=== PATIENT | female | born 1980 | race Caucasian/White ===

== ENCOUNTER 2017-10-15 15:59 | Emergency (ER) | payer BC ==
[2017-10-15 16:46] VITALS: BP 113/74
--- NOTE | 2017-10-15 17:03 | UC ---
Skin Complaint HPI - HPI Summary HPI Summary: Pt c/o insect bite right upper arm. C/o of worsening redness and tenderness surrounding bite area. - History of Current Complaint Chief Complaint: UCSkin Time Seen by Provider: 10/15/17 16:51 Stated Complaint: SKIN COMPLAINT Hx Obtained From: Patient Hx Last Menstrual Period: ABLATION ?: No Onset/Duration: Gradual Onset, Lasting Hours, Worse Since - onset Skin Exposure Onset/Duration: Hours Ago Timing: Constant Onset Severity: Mild Current Severity: Moderate Pain Intensity: 7 Location: Discrete - right upper arm Character: Swelling, Redness, Raised, Painful Aggravating Factor(s): Touch Alleviating Factor(s): Nothing Associated Signs & Symptoms: Positive: Tenderness Related History: Insect Bite/Sting - Allergy/Home Medications Allergies/Adverse Reactions: Allergies Allergy/AdvReac Type Severity Reaction Status Date / Time No Known Allergies Allergy Verified 02/13/16 19:06 Home Medications: Home Medications Furosemide [Lasix] 40 mg PO DAILY 10/15/17 [History Confirmed 10/15/17] Potassium Chloride 20 meq PO DAILY 10/15/17 [History Confirmed 10/15/17] diphenhydrAMINE HCl [Benadryl Allergy] 25 mg PO Q12H 10/15/17 [History Confirmed 10/15/17] Review of Systems Constitutional: Chills Skin: Other - erythema Eyes: Negative ENT: Negative Respiratory: Negative Cardiovascular: Negative Gastrointestinal: Negative Genitourinary: Negative Motor: Negative Neurovascular: Negative Musculoskeletal: Negative Neurological: Negative Psychological: Negative Is Patient Immunocompromised?: No All Other Systems Reviewed And Are Negative: Yes PMH/Surg Hx/FS Hx/Imm Hx Previously Healthy: Yes - Surgical History Surgical History: Yes Surgery Procedure, Year, and Place: tonsilectomy. hernia. myron. ablation. bunionectomy left foot - Family History Known Family History: Positive: Hypertension - Social History Occupation: Employed Full-time Lives: With Family Alcohol Use: Weekly Substance Use Type: None Smoking Status (MU): Never Smoked Tobacco Have You Smoked in the Last Year: No Physical Exam Triage Information Reviewed: Yes Appearance: Well-Appearing Vital Signs: Initial Vital Signs Temp 97.9 F 10/15/17 16:42 Pulse 71 10/15/17 16:42 Resp 17 10/15/17 16:42 BP 113/74 10/15/17 16:42 Pulse Ox 100 10/15/17 16:42 Vital Signs Reviewed: Yes Eye Exam: Normal ENT: Positive: Hearing grossly normal Dental Exam: Normal Neck exam: Normal Respiratory: Positive: No respiratory distress Musculoskeletal Exam: Normal Neurological Exam: Normal Psychological Exam: Normal Skin Exam: Other - large erythematous circular area on right upper posterior arm. ~ 17cm X 13 cm area was marked with surgical marker. Course/Dx - Differential Diagnoses - Skin Complaint Differential Diagnoses: Allergic Reaction, Cellulitis - Diagnoses Provider Diagnoses: cellulitis. localized allergic reaction Discharge - Sign-Out/Discharge Documenting (check all that apply): Discharge/Admit/Transfer - Discharge Plan Condition: Stable Disposition: HOME Prescriptions: Cephalexin CAP* [Keflex 500 CAP*] 500 mg PO Q8H #30 cap Patient Education Materials: Cellulitis (ED), Insect Bite or Sting (ED) Referrals: Naida Dhaliwal MD [Primary Care Provider] - If Needed - Billing Disposition and Condition Condition: STABLE Disposition: HOME
== END 2017-10-15 17:08 | disposition home or self-care (01) ==
LOC: UCCORT 15:59
DX: T78.40XA Allergy, unspecified, initial encounter (principal); X58.XXXA Exposure to other specified factors, initial encounter; L03.113 Cellulitis of right upper limb
CPT/HCPCS: 99212; G0463

== ENCOUNTER 2017-12-08 17:16 | Emergency (ER) | payer BC ==
[2017-12-08 17:50] VITALS: BP 116/62
--- NOTE | 2017-12-08 17:54 | UC ---
Ear Complaint HPI - HPI Summary HPI Summary: His like she's gotten a bug in her ear about 10:30 this morning. She has flushed her ear did not see anything come out she still feels like her hearing is muffled in her right ear. - History of Current Complaint Chief Complaint: UCEar Stated Complaint: PAIN RIGHT EAR/BUG FLEW IN EAR Time Seen by Provider: 12/08/17 17:43 Hx Obtained From: Patient Hx Last Menstrual Period: ABLATION ?: No Onset/Duration: Sudden Onset Severity Currently: Mild Aggravating Factors: FB Associated Signs/Symptoms: Positive: Foreign Body Sensation - Allergies/Home Medications Allergies/Adverse Reactions: Allergies Allergy/AdvReac Type Severity Reaction Status Date / Time latex Allergy Rash Verified 12/08/17 17:44 Home Medications: Home Medications Sennosides [Vegetable Laxative] 4 tab PO DAILY 12/08/17 [History Confirmed 12/08] PMH/Surg Hx/FS Hx/Imm Hx Previously Healthy: Yes - Surgical History Surgical History: Yes Surgery Procedure, Year, and Place: tonsilectomy. hernia. myron. ablation. bunionectomy left foot - Family History Known Family History: Positive: Hypertension - Social History Occupation: Employed Full-time Lives: With Family Alcohol Use: Weekly Substance Use Type: None Smoking Status (MU): Never Smoked Tobacco Have You Smoked in the Last Year: No Review of Systems Constitutional: Negative Skin: Negative Eyes: Negative ENT: Ear Ache - concerned she may have a bug in here right ear Respiratory: Negative Cardiovascular: Negative Gastrointestinal: Negative Genitourinary: Negative Motor: Negative Neurovascular: Negative Musculoskeletal: Negative Neurological: Negative Psychological: Negative Is Patient Immunocompromised?: No All Other Systems Reviewed And Are Negative: Yes Physical Exam Triage Information Reviewed: Yes Appearance: Well-Appearing, No Pain Distress, Well-Nourished Vital Signs Reviewed: Yes Eye Exam: Normal Eyes: Positive: Conjunctiva Clear ENT Exam: Normal ENT: Positive: Normal ENT inspection, Hearing grossly normal, Pharynx normal, Nasal congestion, TMs normal, Uvula midline. Negative: Tonsillar swelling, Tonsillar exudate, Trismus, Muffled voice, Hoarse voice, Sinus tenderness Dental Exam: Normal Neck exam: Normal Neck: Positive: Supple, Nontender Respiratory Exam: Normal Respiratory: Positive: Chest non-tender, No respiratory distress, No accessory muscle use Cardiovascular Exam: Normal Cardiovascular: Positive: RRR, Pulses Normal, Brisk Capillary Refill Musculoskeletal Exam: Normal Musculoskeletal: Positive: Strength Intact, ROM Intact, No Edema Neurological Exam: Normal Neurological: Positive: Alert, Muscle Tone Normal Psychological Exam: Normal Skin Exam: Normal Ear Complaint Course/Dx - Course Course Of Treatment: no evidence of fb in canal---warm compress tylenol, ibuprofen follow with pcp prn - Differential Dx/Diagnosis Provider Diagnoses: right ear pain, FB Resolved FLY WINDER Discharge - Sign-Out/Discharge Documenting (check all that apply): Discharge/Admit/Transfer - Discharge Plan Condition: Stable Disposition: HOME Patient Education Materials: Acetaminophen (By mouth), Ibuprofen (By mouth), Ear Foreign Body (ED), Warm Compress or Soak (ED) Referrals: Naida Dhaliwal MD [Primary Care Provider] - If Needed - Billing Disposition and Condition Condition: STABLE Disposition: Home
== END 2017-12-08 18:15 | disposition home or self-care (01) ==
LOC: UCCORT 17:16
DX: H92.01 Otalgia, right ear (principal)
CPT/HCPCS: 99211; G0463

== ENCOUNTER 2019-07-30 12:43 | Emergency (ER) | payer BC, OTHER ==
--- OUTSIDE RECORDS SUMMARY | 2019-07-30 13:12 | XMS REPORT | Continuity of Care Document ---
:1980 External Reference #:[id number] Author Name Vicente Mathew M.D. (transmitted by agent of provider Domonique Horton) Address [address] [place] [address] Care Team Providers Name Role Phone Naida Dhaliwal MD - Family Medicine Care Team Information Utilities Equipment Repairer [phone] Problems Active Problems Provider Date Dysphagia Purvi Sheehan NP Onset: 04/28/2019 Social History Type Date Description Comments Sex Unknown Tobacco Use Start: Unknown Never Smoked Cigarettes ETOH Use Current Alcohol Use - 1-3 Days A Week. Recreational Drug Use Has Used In Past Allergies, Adverse Reactions, Alerts Active Allergies Reaction Severity Comments Date Latex 10/28/2018 Medications Active Medications SIG Qnty Indications Ordering Provider Date Spironolactone 1 by mouth Unknown 50mg Tablets every day Rifampin Unknown 300mg Capsules Buspirone HCL Unknown 30mg Tablets Phentermine HCL 1 by mouth Unknown 37.5mg every day Capsules Omeprazole 1 by mouth Unknown 40mg Capsules DR every day Medications Administered in Office Medication SIG Qnty Indications Ordering Provider Date Dexamethasone Vicente Mathew M.D. 03/09/2019 Injection Dexamethasone Vicente Mathew M.D. 03/07/2019 Injection Dexamethasone Vicente Mathew M.D. 03/06/2019 Injection Dexamethasone Vicente Mathew M.D. 03/05/2019 Injection Immunizations Description No Information Available Vital Signs Date Vital Result Comment 07/29/2019 4:03pm Weight 176.00 lb Height 65 inches 5'5" BMI (Body Mass Index) 29.3 kg/m2 BP Systolic 124 mmHg BP Diastolic 80 mmHg Heart Rate 98 /min O2 % BldC Oximetry 100 % Body Temperature 97.4 F Pain Level 0 06/24/2019 2:14pm Weight 174.00 lb Height 65 inches 5'5" BMI (Body Mass Index) 29.0 kg/m2 BP Systolic 99 mmHg BP Diastolic 68 mmHg Heart Rate 75 /min O2 % BldC Oximetry 100 % Body Temperature 97.5 F Pain Level 0 Results Test Acquired Date Facility Test Result H/L Range Note Laboratory test 07/20/2019 [facility] Cytology SEE RESULT 1 , [address] Non-Chemical [place] [address] [phone] 1 [id number] 2 SEE RESULT BELOW Name: MARISOL CRUZ : [address]: Vicente Mathew MD Acct: [id number] Unit: [id number] AGE: 39 Location: [facility] Re07/20/19 SEX: F Status: REG REF SPEC: [id number] XOCHITL: 07/20/19-[address]: Vicente Mathew MD REQ: [id number] RECD: 07/20/19 STATUS: SOUT _ ORDERED: [facility] [[email or web address]] COMMENTS: [id number] FINAL DIAGNOSIS Thyroid, isthmus, fine needle aspiration: Benign thyroid nodule, chronic lymphocytic thyroiditis (Webster class II). SPECIMEN(S) RECEIVED THYROID ISTHMUS - ISTHMUS NODULE FINE NEEDLE ASPIRATION CLINICAL HISTORY Isthmus nodule. GROSS DESCRIPTION 1 Alcohol fixed slide(s) received from clinician, 5 Air dried slide(s) and 1 Needle rinse in CytoLyt solution for thin layer non-ship steward test.( clear) Signed by and Reported on: Jose Luis Armas MD [address] END OF REPORT DEPARTMENT OF PATHOLOGY, [address] [place] [address] Jose Luis Armas M.D. Director [facility] # [id number] Procedures Date Code Description Status 07/20/2019 12266 Fine Needle Aspiration Biopsy Inlcd Ultrasound Completed Guidance 06/24/2019 51190 Ultrasound Head/Neck Completed 04/07/2019 53578 Dil. Of Esoph. By Sound Or Bougie Completed 04/07/2019 42133 Esophagoscopy/Diagnostic Completed 04/07/2019 83958 Anesthesia, Chest Surgery Closed Completed 03/09/2019 69222 Therapeutic, Prophylactic Or Diagnostic Injection Completed Subq/Im 03/07/2019 58793 Therapeutic, Prophylactic Or Diagnostic Injection Completed Subq/Im 03/06/2019 86151 Therapeutic, Prophylactic Or Diagnostic Injection Completed Subq/Im 03/05/2019 99622 Therapeutic, Prophylactic Or Diagnostic Injection Completed Subq/Im 03/05/2019 40737 Ultrasound Head/Neck Completed 03/05/2019 09809 Fiberoptic Laryngoscopy,Diag. Completed 02/26/2019 [id number] Bone Mineral Density Test Completed 02/26/2019 [id number] Diabetic Retinal Eye Exam Completed 02/26/2019 [id number] Diabetic Foot Exam Completed Medical Devices Description No Information Available Encounters Type Date Location Provider Dx Diagnosis Office Visit 06/24/2019 Main Office Vicente Mathew M.D. E04.2 Nontoxic multinodular 3:45p goiter R13.10 Dysphagia, unspecified Office Visit 04/28/2019 4:15p Main Office Purvi Cuello R13.10 Dysphagia, Aguila, ARMANDO unspecified Office Visit 03/05/2019 10:15a Main Office Vicente Mathew R13.10 Dysphagia, M.DFederico unspecified K21.9 Gastro-esophageal reflux disease without esophagitis E04.2 Nontoxic multinodular goiter Assessments Date Code Description Provider 07/20/2019 E04.2 Nontoxic multinodular goiter Vicente Mathew M.D. 06/24/2019 E04.2 Nontoxic multinodular goiter Vicente Mathew M.D. 06/24/2019 R13.10 Dysphagia, unspecified Vicente Mathew M.D. 04/28/2019 R13.10 Dysphagia, unspecified Purvi Sheehan NP 04/07/2019 R13.10 Dysphagia, unspecified Alfonzo Allen MD 04/07/2019 R13.10 Dysphagia, unspecified Vicente Mathew M.D. 03/09/2019 R13.10 Dysphagia, unspecified Vicente Mathew M.D. 03/07/2019 R13.10 Dysphagia, unspecified Vicente Mathew M.D. 03/06/2019 R13.10 Dysphagia, unspecified Vicente Mathew M.D. 03/05/2019 R13.10 Dysphagia, unspecified Vicente Mathew M.D. 03/05/2019 K21.9 Gastro-esophageal reflux disease without Vicente Mathew M.D. esophagitis 03/05/2019 E04.2 Nontoxic multinodular goiter Vicente Mathew M.D. Plan of Treatment No Information Available Functional Status Description No Information Available Mental Status Description No Information Available Referrals Refer to Reason for Referral Status Appt Date Vicente Mathew M.D. NO AUTH REQ FOR SURGERY Created [address] [place] [id number] [phone]
--- OUTSIDE RECORDS SUMMARY | 2019-07-30 13:12 | XMS REPORT | Continuity of Care Document ---
:1980 External Reference #:[id number] Author Name Naida Dhaliwal MD Address [address] [place] [address] Care Team Providers Name Role Phone Purvi Webster MD - Neurology Care Team Information Research Attorney [phone] [facility] Care Team Information Research Attorney Walter Reina MD - Surgery Care Team Information Research Attorney You Guardado MD - Infectious Care Team Information Research Attorney Disease Yosef Hinkle M.D. Care Team Information Research Attorney [phone] Terry Flaherty DO Care Team Information Research Attorney [phone] Vicente Mathew MD - Otolaryngology Care Team Information Research Attorney Problems Active Problems Provider Date Benign intracranial hypertension Naida Dhaliwal MD Onset: 09/17/2013 Vitamin D deficiency Naida Dhaliwal MD Onset: 02/23/2013 Constipation Naida Dhaliwal MD Onset: 02/23/2013 Irritable bowel syndrome characterized by Naida Dhaliwal MD Onset: 2017 constipation Mild intermittent asthma Naida Dhaliwal MD Onset: 06/26/2017 Acne Naida Dhaliwal MD Onset: 12/30/2017 Moderate recurrent major depression Naida Dhaliwal MD Onset: 05/16/2018 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 You Guardado MD Onset: without active tuberculosis Palpitations Naida Dhaliwal MD Onset: 09/12/2018 Social History Type Date Description Comments Sex Unknown ETOH Use Denies alcohol use Tobacco Use Start: Unknown Patient has never smoked Smoking Status Reviewed: 05/28/19 Patient has never smoked Allergies, Adverse Reactions, Alerts Description No Known Drug Allergies Medications Active Medications SIG Qnty Indications Ordering Date Provider Bupropion HCL ER (XL) 1 by mouth every F33.1 Naida Dhaliwal, 07/28/2019 day MD 300mg Tablets ER 24HR Azelastine HCL (Nasal) 2 sprays each 30ml J01.00 Naida Dhaliwal, 2019 nostril twice a MD 0.15% Solution day as needed for nasal congestion or sinus headache Proair HFA 2 puffs every 4 8.500gm Naida Dhaliwal, 05/28/2018 108(90Base) hours as needed MD mcg/Act Aerosol Valacyclovir HCL take 2 tablets 30tabs Naida Dhaliwal, 08/28/2010 1gm every 12 hours MD Tablets for 2 doses if needed for cold sores Phentermine HCL 1 by mouth daily 30caps E66.9 Naida Dhaliwal, 37.5mg MD Capsules Spironolactone 2 tabs by mouth L70.9 Unknown 25mg once daily Tablets Senna Laxative qod as Needed Unknown 8.6mg Tablets History Medications Amoxicillin 1 po tid x 10 30caps J01.00 Naida Dhaliwal, 06/30/2019 - 500mg days MD 07/15/2019 Capsules Bupropion 1 by mouth 90tabs F33.1 Naida Dhaliwal, 05/28/2019 - Hydrochloride ER (XL) every day MD 07/28/2019 150mg Tablets ER 24HR Immunizations CPT Code Status Date Vaccine Lot # [id number] Given 03/20/2019 Influenza Virus Vaccine,Quadrivalent,Split,Preserv Free, 0.5mL,Im Q2039 Given 04/07/2018 Flu Vaccine NOS 58435 Given 04/03/2017 Afluria Or Fluvirin Flu Vac Intramuscular 59771 Given 03/05/2016 Influenza Virus Vaccine,Quadrivalent,Split,Preserv Free, 0.5mL,Im 7[address] Given 12/22/2013 MMR Virus Immunization 69411 Given 05/03/2012 Afluria Or Fluvirin Flu Vac Intramuscular 52051 Given 04/17/2012 Tdap (Adacel) Ages 7 And Above Only Vital Signs Date Vital Result Comment 07/28/2019 3:33pm Weight 174.12 lb Heart Rate 72 /min BP Systolic 110 mmHg BP Diastolic 72 mmHg Respiratory Rate 18 /min Height 64.5 inches 5'4.50" BMI (Body Mass Index) 29.4 kg/m2 06/30/2019 2:44pm Body Temperature 97.6 F Weight 174.00 lb Heart Rate 82 /min BP Systolic 120 mmHg BP Diastolic 72 mmHg Respiratory Rate 18 /min Height 64.5 inches 5'4.50" O2 % BldC Oximetry 98 % Ra BMI (Body Mass Index) 29.4 kg/m2 Results Test Acquired Date Facility Test Result H/L Range Note Hepatitis C 07/01/2019 [facility] HCV Index 0.01 s/c Antibody Hepatitis C Antibody Negative Negative HIV Combo By 06/30/2019 [facility] [employer] HIV NON REACTIVE Non Reactive [facility] Combo Laboratory test 06/30/2019 [facility] EQUIVOCAL Abnormal Non Reactive 1 finding Virus Antibody S/CORatio(Adolfo 1 CONFIRMED IN DUPLICATE Antibodies to HCV may or may not be present another speciment should be obtained for further testing S/CO Ratio >/=1.0 is REACTIVE. S/CO <5.0 is Low Reactive. S/CO >/= 5.0 is High Reactive. Effective Jan 25, 2017 all anti-HCV reactive samples are sent for quantitative PCR confirmation. Procedures Date Code Description Status 02/27/2017 [id number] Colonoscopy Completed Medical Devices Description No Information Available Encounters Type Date Location Provider Dx Diagnosis Office Visit 06/30/2019 2:45p [facility] Naida Dhaliwal MD E66.9 Obesity, unspecified E04.1 Nontoxic single thyroid nodule Z11.4 Encounter for screening for human immunodeficiency virus J01.00 Acute maxillary sinusitis, unspecified Z11.59 Encounter for screening for other viral diseases Z68.29 Body mass index (BMI) 29.0-29.9, adult Office Visit 05/28/2019 3:30p [facility] Naida Dhaliwal MD F33.1 Major depressive disorder, recurrent, moderate E66.9 Obesity, unspecified Z68.29 Body mass index (BMI) 29.0-29.9, adult Office Visit 04/16/2019 3:00p [facility] Naida Dhaliwal MD E66.9 Obesity, unspecified R22.1 Localized swelling, mass and lump, neck Office Visit 03/19/2019 3:00p [facility] Naida Dhaliwal MD R22.1 Localized swelling, mass and lump, neck E66.9 Obesity, unspecified F33.1 Major depressive disorder, recurrent, moderate Z68.29 Body mass index (BMI) 29.0-29.9, adult Office Visit 02/26/2019 3:15p [facility] Naida Dhaliwal MD R22.1 Localized swelling, mass and lump, neck Office Visit 02/10/2019 3:30p [facility] Keyona Tran NP E66.9 Obesity, unspecified Z68.29 Body mass index (BMI) 29.0-29.9, adult Assessments Date Code Description Provider 07/28/2019 E66.9 Obesity, unspecified Naida Dhaliwal MD 07/28/2019 F33.1 Major depressive disorder, recurrent, moderate Naida Dhaliwal MD 07/28/2019 Z68.29 Body mass index (BMI) 29.0-29.9, adult Naida Dhaliwal MD 06/30/2019 E66.9 Obesity, unspecified Naida Dhaliwal MD 06/30/2019 E66.9 Obesity, unspecified Naida Dhaliwal MD 06/30/2019 Z11.4 Encounter for screening for human Naida Dhaliwal MD immunodeficiency virus [HIV] 06/30/2019 E04.1 Nontoxic single thyroid nodule Naida Dhaliwal MD 06/30/2019 Z11.59 Encounter for screening for other viral Naida Dhaliwal MD diseases 06/30/2019 Z11.4 Encounter for screening for human Naida Dhaliwal MD immunodeficiency virus [HIV] 06/30/2019 J01.00 Acute maxillary sinusitis, unspecified Naida Dhaliwal MD 06/30/2019 Z11.59 Encounter for screening for other viral Naida Dhaliwal MD diseases 06/30/2019 Z68.29 Body mass index (BMI) 29.0-29.9, adult Naida Dhaliwal MD 06/30/2019 E66.9 Obesity, unspecified Schedule, Laboratory 06/30/2019 Z11.4 Encounter for screening for human Schedule, Laboratory immunodeficiency virus [HIV] 06/30/2019 Z11.59 Encounter for screening for other viral Schedule, Laboratory diseases 06/30/2019 E66.9 Obesity, unspecified [facility] 06/30/2019 Z11.4 Encounter for screening for human [facility] immunodeficiency virus 06/30/2019 Z11.59 Encounter for screening for other viral [facility] diseases 05/28/2019 F33.1 Major depressive disorder, recurrent, moderate Naida Dhaliwal MD 05/28/2019 E66.9 Obesity, unspecified Naida Dhaliwal MD 05/28/2019 Z68.29 Body mass index (BMI) 29.0-29.9, adult Naida Dhaliwal MD 04/16/2019 E66.9 Obesity, unspecified Naida Dhaliwal MD 04/16/2019 R22.1 Localized swelling, mass and lump, neck Naida Dhaliwal MD 03/19/2019 R22.1 Localized swelling, mass and lump, neck Naida Dhaliwal MD 03/19/2019 E66.9 Obesity, unspecified Naida Dhaliwal MD 03/19/2019 F33.1 Major depressive disorder, recurrent, moderate Naida Dhaliwal MD 03/19/2019 Z68.29 Body mass index (BMI) 29.0-29.9, adult Naida Dhaliwal MD 02/26/2019 R22.1 Localized swelling, mass and lump, neck Naida Dhaliwal MD 02/10/2019 E66.9 Obesity, unspecified Keyona Tran NP 02/10/2019 Z68.29 Body mass index (BMI) 29.0-29.9, adult Keyona Tran NP Plan of Treatment Future Appointment(s):10/27/2019 3:30 pm - Naida Dhaliwal MD at [facility]07/28/2019 - Naida Dhaliwal MDE66.9 Obesity, unspecifiedComments:She was provided with a refill on phentermine.Counseled about strategies for weight loss and the impact of weight on chronic medical problems. Work on healthy lifestyle, with regular exercise (20 min daily will help) and eat a healthy diet. Formal diet plans work best.Follow up:3-months follow up with fasting labs prior.F33.1 Major depressive disorder, recurrent, moderateNew Medication:Bupropion HCL ER ( XL) 300 mg - 1 by mouth every dayComments:We will resume back on increased dose of Wellbutrin as directed by physician. Continue with this.Z68.29 Body mass index (BMI) 29.0-29.9, adultComments:The BMI is the ratio between height and weight. Goal for a person under age 65 is between 18.5 and 25. You are overweight. Work on healthy lifestyle, with regular exercise (20 min daily will help) and eat a healthy diet. Formal diet plans work best. Functional Status Description No Information Available Mental Status Description No Information Available Referrals Refer to Dr Reason for Referral Status Appt Date Vicente Mathew MD PRIORITY REFERRAL!! evaluation and treatment Closed 2018 dysphagia and thyroid nodules called Dr. Mathew's office and spoke with Pattie. She would not schedule over the phone, she asked that I fax the referral and she would have the doctor review it today and get it scheduled. 03/05/[address] [place] [address] [phone]
--- OUTSIDE RECORDS SUMMARY | 2019-07-30 13:12 | XMS REPORT | Continuity of Care Document ---
:1980 External Reference #:[id number] Author Name Vicente Mathew M.D. (transmitted by agent of provider Domonique Horton) Address [address] [place] [address] Care Team Providers Name Role Phone Naida Dhaliwal MD - Family Medicine Care Team Information Sciences Dean [phone] Problems Active Problems Provider Date Dysphagia Purvi [...] Available Vital Signs Date Vital Result Comment 06/24/2019 2:14pm Weight 174.00 lb Height 65 inches 5'5" BMI (Body Mass Index) 29.0 kg/m2 BP Systolic 99 mmHg BP Diastolic 68 mmHg Heart Rate 75 /min O2 % BldC Oximetry 100 % Body Temperature 97.5 F Pain Level 0 04/28/2019 4:04pm Weight 174.00 lb Height 65 inches 5'5" BMI (Body Mass Index) 29.0 kg/m2 BP Systolic 118 mmHg BP Diastolic 78 mmHg Heart Rate 101 /min O2 % BldC Oximetry 100 % Body Temperature 98.4 F Pain Level 0 Results Description No Information Available Procedures Date Code Description Status 04/07/2019 32701 Dil. Of Esoph. By Sound Or Bougie Completed 04/07/2019 10184 Esophagoscopy/Diagnostic Completed 04/07/2019 12782 Anesthesia, Chest Surgery Closed Completed 03/09/2019 95458 Therapeutic, Prophylactic Or Diagnostic Injection Completed Subq/Im 03/07/2019 67894 Therapeutic, Prophylactic Or Diagnostic Injection Completed Subq/Im 03/06/2019 09514 Therapeutic, Prophylactic Or Diagnostic Injection Completed Subq/Im 03/05/2019 05605 Therapeutic, Prophylactic Or Diagnostic Injection Completed Subq/Im 03/05/2019 06727 Ultrasound Head/Neck Completed 03/05/2019 15798 Fiberoptic Laryngoscopy,Diag. 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 R13.10 Dysphagia, 10:15a unspecified K21.9 Gastro-esophageal reflux disease without esophagitis E04.2 Nontoxic multinodular goiter Assessments Date Code Description Provider 04/28/2019 R13.10 Dysphagia, unspecified Purvi Sheehan NP [...] M.D. NO AUTH REQ FOR SURGERY Created [address] [place] [address] [phone]
--- OUTSIDE RECORDS SUMMARY | 2019-07-30 13:12 | XMS REPORT | Continuity of Care Document ---
:1980 External Reference #:[id number] Author Name Naida Dhaliwal MD Address [address] [place] [address] Care Team Providers Name Role Phone Purvi Webster MD - Neurology Care Team Information Freelance Makeup Artist [phone] [facility] Care Team Information Freelance Makeup Artist Walter Reina MD - Surgery Care Team Information Freelance Makeup Artist You Guardado MD - Infectious Care Team Information Freelance Makeup Artist Disease Yosef Hinkle M.D. Care Team Information Freelance Makeup Artist [phone] Terry Flaherty DO Care Team Information Freelance Makeup Artist [phone] Vicente Mathew MD - Otolaryngology Care Team Information Freelance Makeup Artist [phone] Problems Active Problems Provider Date Benign intracranial [...] Medications SIG Qnty Indications Ordering Date Provider Amoxicillin 1 po tid x 10 30caps J01.00 Naida Dhaliwal, 06/30/2019 500mg days MD Capsules Azelastine HCL (Nasal) 2 sprays each 30ml J01.00 Naida Dhaliwal, 2019 nostril twice a MD 0.15% Solution day as needed for nasal congestion or sinus headache Bupropion 1 by mouth every 90tabs F33.1 Naida Dhaliwal, 05/28/2019 Hydrochloride ER (XL) day MD 150mg Tablets ER 24HR Proair HFA 2 puffs every 4 8.500gm [...] Laxative qod as Needed Unknown 8.6mg Tablets Immunizations CPT Code Status Date Vaccine Lot # [id number] Given 03/20/2019 Influenza Virus Vaccine,Quadrivalent,Split,Preserv Free, 0.5mL,Im Q2039 Given 04/07/2018 Flu Vaccine NOS 86146 Given 04/03/2017 Afluria Or Fluvirin Flu Vac Intramuscular 61263 Given 03/05/2016 Influenza Virus Vaccine,Quadrivalent,Split,Preserv Free, 0.5mL,Im 70701 Given 12/22/2013 MMR Virus Immunization 66600 Given 05/03/2012 Afluria Or Fluvirin Flu Vac Intramuscular 73014 Given 04/17/2012 Tdap (Adacel) Ages 7 And Above Only Vital Signs Date Vital Result Comment 06/30/2019 2:44pm Body Temperature 97.6 F Weight 174.00 lb Heart Rate 82 /min BP Systolic 120 mmHg BP Diastolic 72 mmHg Respiratory Rate 18 /min Height 64.5 inches 5'4.50" O2 % BldC Oximetry 98 % Ra BMI (Body Mass Index) 29.4 kg/m2 05/28/2019 3:13pm Weight 174.00 lb Heart Rate 73 /min BP Systolic 122 mmHg BP Diastolic 64 mmHg Respiratory Rate 18 /min Height 64.5 inches 5'4.50" O2 % BldC Oximetry 100 % BMI (Body Mass Index) 29.4 kg/m2 Results Test Acquired Date Facility Test Result H/L Range Note Laboratory test 06/30/2019 [facility] Hepatitis C Virus <pending> finding Antibody Procedures Date Code Description Status 02/27/2017 41485580 Colonoscopy Completed Medical Devices Description No Information Available Encounters Type Date Location Provider Dx Diagnosis Office Visit 05/28/2019 [facility] Naida Dhaliwal MD F33.1 Major depressive 3:30p disorder, recurrent, moderate E66.9 Obesity, unspecified Z68.29 Body mass index (BMI) 29.0-29.9, adult Office Visit 04/16/2019 3:00p [facility] Naida Dhaliwal MD E66.9 Obesity, unspecified R22.1 Localized swelling, mass and lump, neck Office Visit 03/19/2019 3:00p [facility] Naida Dhaliwal MD R22.1 Localized swelling, mass and lump, neck E66.9 Obesity, unspecified F33.1 Major depressive disorder, recurrent, moderate Z68.29 Body mass index (BMI) 29.0-29.9, adult Office Visit 02/26/2019 3:15p [facility] Naida Dhaliwal MD R22.1 Localized swelling, mass and lump, neck Office Visit 02/10/2019 3:30p [facility] Keyona Tran NP E66.9 Obesity, unspecified Z68.29 Body mass index (BMI) 29.0-29.9, adult Office Visit 01/09/2019 4:00p [facility] Naida Dhaliwal MD E66.9 Obesity, unspecified Z68.30 Body mass index (BMI) 30.0-30.9, adult Assessments Date Code Description Provider 06/30/2019 E66.9 Obesity, unspecified Naida Dhaliwal MD 06/30/2019 E04.1 Nontoxic single thyroid nodule Naida Dhaliwal MD 06/30/2019 Z11.4 Encounter for [...] screening for human Schedule, Laboratory immunodeficiency virus 06/30/2019 Z11.59 Encounter for screening for other viral Schedule, Laboratory diseases 05/28/2019 F33.1 Major depressive disorder, recurrent, [...] index (BMI) 29.0-29.9, adult Keyona Tran NP 01/09/2019 E66.9 Obesity, unspecified Naida Dhaliwal MD 01/09/2019 Z68.30 Body mass index (BMI) 30.0-30.9, adult Naida Dhaliwal MD Plan of Treatment Future Appointment(s):07/28/2019 3:30 pm - Naida Dhaliwal MD at [facility]06/30/2019 - Naida Dhaliwal MDE66.9 Obesity, unspecifiedComments:Counseled about strategies for weight loss and the impact of weight on chronic medical problems.Work on healthy lifestyle, with regular exercise (20 min daily will help) and eat a healthy diet. Formal diet plans work best.We also provided a prescription for phentermine 37.5 mg for her weight loss. She was recommended to exercise daily.Follow up:1-month medication refill. Follow up as mdgaaapkiS66.1 Nontoxic single thyroid noduleComments:follows with dr mathew for this.Z11.4 Encounter for screening for human immunodeficiency virus [HIV] Comments:The patient would like to be tested for HIV - discussed that this test is only valid for exposures longer than 3 months ago so would recommend repeating the test in 6 months if there is a potential for a more recent exposure.J01.00 Acute maxillary sinusitis, unspecifiedNew Medication: Amoxicillin 500 mg - 1 po tid x 10 daysAzelastine HCL (Nasal) 0.15 % - 2 sprays each nostril twice a day as needed for nasal congestion or sinus headacheComments:We will treat the patient with amoxicillin 500 mg 1 tablet daily for 10 days. She was advised to use azelastine nasal spray for nasal congestion.Z11.59 Encounter for screening for other viral diseasesComments: discussed testing for hepatis C - recommended this as she had a household contact with HIV who is suspected to have been using IV drugs.Z68.29 Body mass index (BMI) 29.0-29.9, adultComments:The BMI [...] it today and get it scheduled. 03/05/[address] [place] [address] [phone]
[2019-07-30 13:30] LABS: ABS Eosinophils 0.1 10^3/ul (0-0.6); ABS Lymphocytes 1.8 10^3/ul (1.0-4.8); ABS Monocytes 0.4 10^3/ul (0-0.8); ABS Neutrophils 3.5 10^3/ul (1.5-7.7); Eosinophil % 1.7 %; Hematocrit 40 % (35-47); Hemoglobin 14.3 g/dL (12.0-16.0); Lymphocyte % 30.8 %; Mean Corpuscular HGB Conc 35 g/dL (31-36); Mean Corpuscular Hemoglobin 30 pg (27-31); Mean Corpuscular Volume 85 fL (80-97); Mean Platelet Volume 8.1 fL (7.4-10.4); Platelet Count 236 10^3/uL (150-450); Red Blood Count 4.73 10^6 /uL (3.70-4.87); Red Cell Distribution Width 13 % (10-15); White Blood Count 5.7 10^3/uL (3.5-10.8)
[2019-07-30 13:39] LABS: ALT 10 U/L (7-52); AST 16 U/L (13-39); Albumin 4.6 g/dL (3.2-5.2); Albumin/Globulin Ratio 1.7 (1-3); Alkaline Phosphatase 48 U/L (34-104); Anion Gap 7 mmol/L (2-11); Blood Urea Nitrogen 18 mg/dL (6-24); CO2 Carbon Dioxide 26 mmol/L (22-32); Calcium 9.5 mg/dL (8.6-10.3); Chloride 103 mmol/L (101-111); EGFR African American 84.8 (>60); EGFR Non-African American 70.1 (>60); Globulin 2.7 g/dL (2-4); Glucose 83 mg/dL (70-100); Potassium 4.3 mmol/L (3.5-5.0); Sodium 136 mmol/L (135-145); Total Protein 7.3 g/dL (6.4-8.9)
[2019-07-30 13:46] LABS: HCG Pregnancy < 0.60 mIU/mL
[2019-07-30] MEDS ORDERED: Raltegravir* 400 MG TAB PO ONE (14:00)
[2019-07-30] MEDS ORDERED: Tenofovir/Emtricitab 200/300 * TAB PO ONE (14:00)
--- NOTE | 2019-07-30 14:06 | ED ---
- HPI Summary HPI Summary: Patient is a 39 y/o F presenting to [facility] with a chief complaint of needlestick occurring around 1145 this morning. She reports she was accessing a patients port in the endoscopy unit and accidently stuck herself with a needle after it came out of the port. She believes the patient to be low-risk. No reported history of HIV, full immunization. She denies fever, chills, erythema of eyes, sore throat, CP, SOB, cough, abdominal pain, N/V, dysuria, hematuria, myalgia, edema, rash, or dizziness. She is not in any pain. Past medical history includes seizures. Nonsmoker, weekly alcohol use, no substance use. Medications reviewed. Allergies noted. - History of Current Complaint Chief Complaint: EDExposureBodyFluid Stated Complaint: NEEDLE STICK FROM [facility] Time Seen by Provider: 07/30/19 13:45 Date of Incident: 07/30/19 Time of Incident: 11:45 Job Performing at Time of Incident: accessing patient's port Mechanism of Injury: Patient accessing another patient's port on endoscopy unit , accidentally stuck self whie removing needle. Blood on Needle: No Depth of Needlestick: Puncture Body Fluid Exposure: Other - inserted into port Treatment ELECTRONIC BENCH TECHNICIAN: Cleaned Wound PMH/Surg Hx/FS Hx/Imm Hx Endocrine/Hematology History: Denies: Hx Diabetes Cardiovascular History: Denies: Hx Hypertension, Hx Pacemaker/ICD Respiratory History: Denies: Hx Asthma History: Denies: Hx Dialysis, Hx Renal Disease Sensory History: Denies: Hx Hearing Aid Neurological History: Reports: Hx Seizures Psychiatric History: Denies: Hx Panic Disorder - Surgical History Surgical History: Yes Surgery Procedure, Year, and Place: tonsilectomy. hernia. myron. UTERINE ablation. bunionectomy left foot Infectious Disease History: No Infectious Disease History: Denies: Traveled Outside the [place] in Last 30 Days - Family History Known Family History: Positive: Hypertension - Social History Alcohol Use: Weekly Hx Substance Use: No Substance Use Type: Reports: None Hx Tobacco Use: No Smoking Status (MU): Never Smoked Tobacco Have You Smoked in the Last Year: No Review of Systems Negative: Fever, Chills Negative: Erythema Negative: Sore Throat Negative: Chest Pain Negative: Shortness Of Breath, Cough Negative: Abdominal Pain, Vomiting, Nausea Negative: dysuria, hematuria Negative: Myalgia, Edema Positive: Other - puncture would to left middle finger. Negative: Rash Neurological/Mental Status: Other - Negative: dizziness All Other Systems Reviewed And Are Negative: Yes Physical Exam - Summary Physical Exam Summary: Constitutional: Well-developed, Well-nourished, Alert. (-) Distressed Skin: Small puncture wound to the left middle finger; Warm, Dry HENT: Normocephalic; Atraumatic Eyes: Conjunctiva normal Neck: Musculoskeletal ROM normal neck. (-) JVD, (-) Stridor, (-) Tracheal deviation Cardio: Rhythm regular, rate normal, Heart sounds normal; Intact distal pulses; The pedal pulses are 2+ and symmetric. Radial pulses are 2+ and symmetric. (-) Murmur Pulmonary/Chest wall: Effort normal. (-) Respiratory distress, (-) Wheezes, (-) Rales Abd: Soft, (-) tenderness, (-) Distension, (-) Guarding, (-) Rebound Musculoskeletal: (-) Edema Lymph: (-) Cervical adenopathy Neuro: Alert, Oriented x3 Psych: Mood and affect Normal Triage Information Reviewed: Yes Vital Signs On Initial Exam: Initial Vitals Temp Pulse Resp BP Pulse Ox 98.2 F 78 16 134/74 100 07/30/19 12:53 07/30/19 12:53 07/30/19 12:53 07/30/19 12:53 07/30/19 12:53 Vital Signs Reviewed: Yes Procedures - Sedation Patient Received Moderate/Deep Sedation with Procedure: No Diagnostics - Vital Signs Vital Signs Temp Pulse Resp BP Pulse Ox 07/30/19 12:53 98.2 F 78 16 134/74 100 - Laboratory Lab Results: Lab Results 07/30/19 07/30/19 Range/Units 13:05 13:05 WBC 5.7 (3.5-10.8) 10^3/uL RBC 4.73 (3.70-4.87) 10^6 /uL Hgb 14.3 (12.0-16.0) g/dL Hct 40 (35-47) % MCV 85 (80-97) fL MCH 30 (27-31) pg MCHC 35 (31-36) g/dL RDW 13 (10-15) % Plt Count 236 (150-450) 10^3/uL MPV 8.1 (7.4-10.4) fL Neut % (Auto) 60.6 % Lymph % (Auto) 30.8 % [place] % (Auto) 6.4 % Eos % (Auto) 1.7 % Baso % (Auto) 0.5 % Absolute Neuts (auto) 3.5 (1.5-7.7) 10^3/ul Absolute Lymphs (auto) 1.8 (1.0-4.8) 10^3/ul Absolute Monos (auto) 0.4 (0-0.8) 10^3/ul Absolute Eos (auto) 0.1 (0-0.6) 10^3/ul Absolute Basos (auto) 0.0 (0-0.2) 10^3/ul Absolute Nucleated RBC 0.0 10^3/ul Nucleated RBC % 0.0 Sodium 136 (135-145) mmol/L Potassium 4.3 (3.5-5.0) mmol/L Chloride 103 (101-111) mmol/L Carbon Dioxide 26 (22-32) mmol/L Anion Gap 7 (2-11) mmol/L BUN 18 (6-24) mg/dL Creatinine 0.90 (0.51-0.95) mg/dL Est GFR ( Amer) 84.8 (>60) Est GFR (Non-Af Amer) 70.1 (>60) BUN/Creatinine Ratio 20.0 (8-20) Glucose 83 (70-100) mg/dL Calcium 9.5 (8.6-10.3) mg/dL Total Bilirubin 0.80 (0.2-1.0) mg/dL AST 16 (13-39) U/L ALT 10 (7-52) U/L Alkaline Phosphatase 48 (34-104) U/L Total Protein 7.3 (6.4-8.9) g/dL Albumin 4.6 (3.2-5.2) g/dL Globulin 2.7 (2-4) g/dL Albumin/Globulin Ratio 1.7 (1-3) Beta HCG, Quant < 0.60 mIU/mL Result Diagrams: 07/30/19 13:05 07/30/19 13:05 Lab Statement: Any lab studies that have been ordered have been reviewed, and results considered in the medical decision making process. Re-Evaluation - Re-Evaluation First Eval Re-Evaluation Time: 14:00 Comment: Discussed results and plan for discharge following HAART. Patient agreeable with plan. Needlestick Course/Dx - Course Course Of Treatment: Patient is a 39 y/o F presenting with needlestick occurring around 1145 this morning while accessing a patients port in the endoscopy unit where she accidently stuck herself with a needle after it came out of the port. She believes the patient to be low-risk. No report history of HIV, full immunization. Physical exam reveals puncture wound to left middle finger. Blood work without significant abnormality. Serology with negative results; immune hep B antibody, nonreactive h Bs antigen, negative hep C antibody, hep C ab index 0.01, nonreactive HIV 1&2 ab/P24 ag 4th gen. We discussed time sensitivity to post-exposure prophylaxis, and we agreed on one dose of HAART treatment. I spoke with Beata Yoder from the Infection Control office who will follow with the patient this afternoon to relay results. They recommend sending the patient back to her unit. Patient agreeable with plan. - Diagnoses Provider Diagnoses: Needlestick injury accident - Physician Notifications Discussed Care Of Patient With: Beata Yoder - Infection Control Instructed by Provider To: Other - Beata reports that the patient's labs will be resulted and relayed to her in the office today; she may return to her unit. Discharge ED - Sign-Out/Discharge Documenting (check all that apply): Patient Departure - Patient will be discharged home. - Discharge Plan Condition: Stable Disposition: HOME Patient Education Materials: Needle Stick Injuries (ED) Referrals: Naida Dhaliwal MD [Primary Care Provider] - 3 Days INFECTION,CONTROL [[facility], APPLICATION, OTHER] - 07/30/19 Additional Instructions: Follow with the Infection Control Office this afternoon like we discussed. Return to the emergency department for any new or worsening symptoms. - Attestation Statements Document Initiated by Scribe: Yes Documenting Scribe: Gege Carver Provider For Whom Krishna is Documenting (Include Credential): Dr. Lamberto Villanueva MD Scribe Attestation: Gege Barkley, scribed for Dr. Lamberto Villanueva MD on 07/30/19 at 1617. Status of Scribe Document: Ready
[2019-07-30 14:15] LABS: HIV 4th Generation Nonreactive (Nonreactive)
[2019-07-30 14:18] LABS: Hepatitis B Surface Antigen Nonreactive (Nonreactive)
[2019-07-30 14:33] VITALS: BP 132/73
[2019-07-30 14:35] LABS: Hepatitis B Surface Ab Immune (Immune)
[2019-07-30 14:36] LABS: Hepatitis C Antibody Negative (Negative)
== END 2019-07-30 14:20 | disposition home or self-care (01) ==
LOC: ED 12:43
DX: S61.233A Puncture wound without foreign body of left middle finger without damage to nail, initial encounter (principal); W46.1XXA Contact with contaminated hypodermic needle, initial encounter; Y93.89 Activity, other specified; Y92.238 Other place in hospital as the place of occurrence of the external cause; Y99.0 Civilian activity done for income or pay; Z91.040 Latex allergy status
CPT/HCPCS: 36415; 80053; 84702; 85025; 86706; 86803; 87340; 87389; 99283